=== PATIENT | female | born 1970 | race Caucasian/White ===

== ENCOUNTER 2023-12-21 23:21 | Emergency (ER) | payer OTHER ==
[~2023-12-21] VITALS: Ht 157.5 cm; Wt 57.0 kg
[2023-12-21] MEDS ORDERED: PANTOPRAZOLE SO20 MG PO (23:38)
[2023-12-21] MEDS ORDERED: CHILDREN'S ASPI81 M1 PO (23:38)
[2023-12-21] MEDS ORDERED: DULOXETINE HCL30 MG PO (23:38)
[2023-12-21] MEDS ORDERED: NURTEC ODT75 MG PO (23:38)
[2023-12-21] MEDS ORDERED: HYDROmorphone HCL 1 MG/ML SYR IV PRN (23:45)
[2023-12-21] MEDS ORDERED: ondansetron HCL 4 MG/2 ML VIAL IV ONE (23:45)
[2023-12-22 00:01] LABS: BASOPHILS 1.5 % (0-2); EOSINOPHILS 0.6 % (0-6); HEMATOCRIT 41.3 % (35.0-50.0); HEMOGLOBIN 13.4 g/dL (12.0-18.0); LYMPHOCYTES 4.8 % (24-44); MCHC 32.5 g/dl (30-36); MCV 92.4 fl (81-99); MONOCYTES 3.1 % (0-12); PLATELET COUNT 187 K/uL (140-440); RBC 4.46 M/ul (4.3-5.7); RDW 13.5 (10.5-15.0)
[2023-12-22 00:15] LABS: ALBUMIN 3.5 g/dL (3.4-5.0); ALBUMIN/GLOBULIN RATIO 1.09 (1.1-2.4); ANION GAP 12.7 (7-21); BILIRUBIN, TOTAL 0.3 ng/dL (0.2-1.0); BUN/CREATININE RATIO 18.84 (6.0-28.6); CALCIUM 8.3 mg/dL (8.5-10.1); CREATININE, SERUM 0.69 mg/dL (0.55-1.02); POTASSIUM 3.7 mmol/L (3.5-5.1); PROTEIN, TOTAL 6.7 g/dL (6.4-8.2)
[2023-12-22] MEDS ORDERED: PERCOCET 5-3251 EACH PO (02:12)
[2023-12-22] MEDS ORDERED: ONDANSETRON ODT8 MG PO (02:12)
[2023-12-22] MEDS ORDERED: OXYCODONE/ACETAMINOPHEN 1 TAB HOME.PACK PO ONE (02:15)
[2023-12-22] MEDS ORDERED: ONDANSETRON 4 MG HOME.PACK SL ONE (02:15)
[2023-12-22 02:40] VITALS: BP 98/65
== END 2023-12-22 02:40 | disposition home or self-care (01) ==
LOC: ED 23:21
PROVIDERS: Family Medicine
DX: S32.10XA Unspecified fracture of sacrum, initial encounter for closed fracture (principal); S32.592A Other specified fracture of left pubis, initial encounter for closed fracture; W18.39XA Other fall on same level, initial encounter; Z88.5 Allergy status to narcotic agent; Z79.82 Long term (current) use of aspirin; Z79.899 Other long term (current) drug therapy
CPT/HCPCS: 36415; 72100; 72170; 72192; 73552; 80053; 85025; 96374; 96375; 99284; A9270; J1170; J2405